=== PATIENT | male | born 1975 | race African-American/Black ===

== ENCOUNTER 2023-09-14 15:51 | Emergency (ER) | payer OTHER ==
[~2023-09-14] VITALS: Ht 190.5 cm; Wt 93.2 kg
[2023-09-14 16:12] VITALS: TEMP 98.5; O2SAT 100
[2023-09-14 19:48] VITALS: BP 122/80; PULSE 78; RESP 20
== END 2023-09-14 19:50 | disposition home or self-care (01) ==
LOC: ER 15:51
DX: R41.0 Disorientation, unspecified (principal)
CPT/HCPCS: 70551; 99284